=== PATIENT | male | born 2000 | race Caucasian/White ===

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

== ENCOUNTER 2018-07-17 07:12 | Emergency (ER) | payer BC ==
[~2018-07-17] VITALS: Ht 180.3 cm; Wt 95.3 kg
[~2018-07-17 07:12] MED LIST: FEXO-14 PO
--- OUTSIDE RECORDS SUMMARY | 2018-07-17 07:17 | XMS REPORT | Continuity of Care Document ---
Author Organization Unknown Address Unknown Allergies There is no data. Medications There [...] 04/28/2013 SHAINA QUINTERO MD 314.00 ADD 04/28/2013 NIDHI TA, DANIS Montano 314.00 ADD 04/28/2013 SHAINA QUINTERO MD 314.00 ADD 04/28/2013 SHAINA QUINTERO MD 314.00 ADD Procedures There is no data. Results There is no data. Encounters ACCT No. Visit Date/Time Discharge Status Pt. Type Provider Facility Loc./Unit Complaint [id number] 07/15/2018 17:50:00 ACT Outpatient EDWARD MENDEZ LAC [facility] [id number] 03/19/2014 14:43:00 03/19/2014 23:59:59 CLS Outpatient SHAINA QUINTERO MD [id number] 02/02/2014 15:16:00 02/02/2014 23:59:59 CLS Outpatient SHAINA QUINTERO MD [id number] 01/22/2014 15:58:00 01/22/2014 23:59:59 CLS Outpatient DANIS TERRELL MD [id number] 12/15/2013 16:31:00 12/15/2013 23:59:59 CLS Outpatient SHAINA QUINTERO MD [id number] 06/06/2013 15:32:00 06/06/2013 23:59:59 CLS Outpatient SHAINA QUINTERO MD [id number] 04/28/2013 15:29:00 04/28/2013 23:59:59 CLS Outpatient SHAINA QUINTERO MD [id number] 04/10/2013 15:20:00 04/10/2013 23:59:59 CLS Outpatient CHARLES MATHIS DO [id number] 12/12/2012 15:30:00 12/12/2012 23:59:59 CLS Outpatient CHARLES MATHIS DO
--- OUTSIDE RECORDS SUMMARY | 2018-07-17 07:17 | XMS REPORT ---
Author Author Migration, Doctor Organization [facility] Address Unknown Phone Unavailable Care Team Providers Care Ios Architect Name Role Phone Migration, Doctor Unavailable Unavailable PROBLEMS Type Condition ICD9-CM Code PEE66-OH Code Onset Dates Condition Status SNOMED Code Problem Attention deficit disorder of childhood with hyperactivity 314.01 Active 558492666 Problem Attention deficit disorder of childhood without mention of hyperactivity 314.00 Active 23146694 Problem Need for prophylactic vaccination and inoculation, Influenza V04.81 Active 914509868 ALLERGIES No Information ENCOUNTERS Encounter Location Date Diagnosis [facility] [address] [place] [address] Aug, [facility] [address] [place] [phone] July, [facility] [address] [place] [id number] [place] [phone] Jul, [facility] [address] [place] [id number] [place] [address] Jul, [facility] [address] [place] [phone] May, [facility] [address] [place] [id number] [place] [phone] May, [facility] [address] [place] [id number] [place] [address] May, [facility] [address] [place] [phone] May, [facility] [address] [place] [address] Apr, [facility] [address] [place] [id number] [place] [address] Apr, [facility] [address] [place] [address] Mar, [facility] [address] [place] [id number], [place] [address] Mar, [facility] [address] [place] [address] Mar, [facility] [address] [address] Mar, [facility] [address] [place] [address] Jan, [facility] [id number] [place] [address] Jan, [facility] [address] [place] [address] Dec, [facility] [id number] [place] [address] Dec, [facility] [address] [place] [address] Dec, [facility] [id number] [place] [address] Dec, [facility] [address] [place] [address] Dec, [facility] [id number] [place] [address] Dec, [facility] [address] [place] [address] Dec, [facility] [address] [address] Dec, [facility] [address] [place] [address] Oct, [facility] [id number] [place] [address] Oct, [facility] [address] [place] [address] Sep, [facility] [address] [address] Sep, [facility] [address] [place] [facility] [place] [address] Aug, [facility] [address] [facility] [id number] [address] Aug, [facility] [address] [place] [address] Jul, [facility] [id number] [address] Jul, [facility] [address] [place] [address] May, [facility] [id number] [address] May, [facility] [address] [place] [address] May, [facility] [id number] [address] May, [facility] [address] [place] [address] May, [facility] [id number] [address] May, [facility] [address] [place] [address] Apr, [facility] [address] [place] [address] Apr, [facility] [id number] [address] Apr, [facility] [id number] [address] Apr, [facility] [address] [place] [address] Apr, [facility] [id number] [address] Apr, [facility] [address] [place] [address] Apr, [facility] [address] [facility] [id number] [place] [address] Apr, [facility] [address] [place] [address] Mar, [facility] [id number] [address] Mar, [facility] [address] [place] [address] Dec, [facility] [id number] [id number] Dec, [facility] [place] [address] Dec, IMMUNIZATIONS No Known Immunizations SOCIAL HISTORY Never Assessed REASON FOR VISIT [facility] [place] [place] PLAN OF CARE VITAL SIGNS MEDICATIONS Medication Instructions Dosage Frequency Start Date End Date Duration Status Adderall XR 15 mg 1 Capsule by Oral route 1 time per day at noon May Active RESULTS No Results PROCEDURES No Known procedures INSTRUCTIONS MEDICATIONS ADMINISTERED No Known Medications
--- NOTE | 2018-07-17 07:27 | ED General ---
General Chief Complaint: Dizzy, nasal drainage Stated Complaint: DIZZY Source of Information: Patient, Family Exam Limitations: No Limitations History of Present Illness Date Seen by Provider: Jul 17, 2018 Time Seen by Provider: 07:27 Timing/Duration: Other (2 weeks) Severity: Mild 17 y/o M with history of allergies presents with 2 week history of nasal drainage and subsequent congestion, intermittent frontal headaches without fever or chills. He has had intermittent dizziness that is worse with position change and turning his head, improved when still. No neck stiffness. Denies palpitations, SOB, chest pain, passing out. Allergies and Home Medications Allergies Coded Allergies: No Known Drug Allergies (Unverified , 11/29/17) Home Medications Amoxicillin 500 Mg Capsule, 500 MG PO TID Prescribed by: GT WILSON on 07/17/18 0749 Flunisolide 25 Ml Inha, 25 ML NS BID Prescribed by: GT WILSON on 07/17/18 0749 Meclizine HCl 25 Mg Tablet, 25 MG PO Q8H PRN for DIZZINESS Prescribed by: GT WILSON on 07/17/18 0749 Patient Home Medication List Home Medication List Reviewed: Yes Review of Systems Review of Systems Constitutional: No chills; dizziness; No fever, No weakness EENTM: see HPI Respiratory: No cough, No short of breath Cardiovascular: No chest pain, No edema, No palpitations Gastrointestinal: No abdominal pain, No nausea, No vomiting Genitourinary: No dysuria, No frequency, No hematuria Musculoskeletal: No muscle pain, No muscle stiffness, No neck pain Skin: No lesions, No rash Psychiatric/Neurological: Anxiety, Headache; Denies Numbness Past Abzihkf-Xghwku-Pvaveb Hx Past Med/Social Hx: Reviewed Nursing Past Med/Soc Hx Patient Social History 2nd Hand Smoke Exposure: No Recent Hopitalizations: No Immunizations Up To Date Tetanus Booster (TDap): Less than 5yrs PED Vaccines UTD: Yes Seasonal Allergies Seasonal Allergies: No Past Medical History Surgeries: Yes (skin lesion) Respiratory: No Cardiac: No Neurological: No Genitourinary: No Gastrointestinal: No Musculoskeletal: No Endocrine: No HEENT: No Cancer: No Psychosocial: No Integumentary: No Blood Disorders: No Physical Exam Vital Signs Vital Signs - First Documented 07/17/18 07/17/18 07:20 07:54 Temp 96.7 Pulse 99 Resp 16 B/P (MAP) 133/79 Pulse Ox 99 O2 Delivery Room Air Capillary Refill : Height, Weight, BMI Height: 5'11.00" Weight: 215lbs. oz. 97.481210ag; 28.12 BMI Method:Stated General Appearance: No Apparent Distress, WD/WN HEENT: PERRL/EOMI, TMs Normal, Pharynx Normal, Other (+ point tenderness/ fullness over benitez maxillary sinuses, + green nasal discharge) Neck: Full Range of Motion, Normal Inspection, Non Tender, Supple Respiratory: Chest Non Tender, Lungs Clear, Normal Breath Sounds, No Accessory Muscle Use, No Respiratory Distress Cardiovascular: Regular Rate, Rhythm, No Edema, No Gallop, No JVD, No Murmur, Normal Peripheral Pulses Extremity: Normal Capillary Refill, Normal Inspection, Normal Range of Motion, Non Tender, No Calf Tenderness, No Pedal Edema Neurologic/Psychiatric: Alert, Oriented x3, No Motor/Sensory Deficits, Normal Mood/Affect, stationary fireman II-XII Norm as Tested Skin: Normal Color, Warm/Dry Progress/Results/Core Measures Suspected Sepsis SIRS Temperature: Pulse: Respiratory Rate: Blood Pressure / Mean: Results/Orders Vital Signs/I&O 07/17/18 07/17/18 07:20 07:54 Temp 96.7 96.7 Pulse 99 99 Resp 16 16 B/P (MAP) 133/79 Pulse Ox 99 O2 Delivery Room Air Room Air Capillary Refill : Departure Impression Primary Impression: Benign positional vertigo Additional Impression: Sinusitis Disposition: 01 HOME, SELF-CARE Condition: Stable Departure-Patient Inst. Decision time for Depature: 07:44 Referrals: NO,LOCAL PHYSICIAN (PCP/Family) Primary Care Physician Patient Instructions: Vertigo (a Type of Dizziness) (DC), Sinusitis, Adult (DC) Scripts Meclizine HCl (Meclizine HCl) 25 Mg Tablet 25 MG PO Q8H PRN for DIZZINESS for 10 Days, #30 TAB 0 Refills Prov: GT WILSON MD 07/17/18 Flunisolide (Flunisolide) 25 Ml Inha 25 ML NS BID for 14 Days, #1 INHALER 0 Refills Prov: GT WILSON MD 07/17/18 Amoxicillin (Amoxicillin) 500 Mg Capsule 500 MG PO TID for 7 Days, #21 CAP 0 Refills Prov: GT WILSON MD 07/17/18 GT WILSON MD Jul 17, 2018 07:27
[2018-07-17] MEDS ORDERED: AMOX500C2 PO (07:49)
[2018-07-17] MEDS ORDERED: MECL-106 PO (07:49)
[2018-07-17] MEDS ORDERED: FL025NA25 NS (07:49)
== END 2018-07-17 07:54 | disposition home or self-care (01) ==
LOC: EDUNIT# 07:12 → ER FS 07:14
DX: H81.10 Benign paroxysmal vertigo, unspecified ear (principal); J32.9 Chronic sinusitis, unspecified
CPT/HCPCS: 99283

== ENCOUNTER 2018-08-07 22:52 | Emergency (ER) | payer BC ==
[~2018-08-07] VITALS: Ht 177.8 cm; Wt 100.7 kg
[~2018-08-07 22:52] MED LIST changes: +AMOX500C2 PO; +FL025NA25 NS; +MECL-106 PO
--- OUTSIDE RECORDS SUMMARY | 2018-08-07 23:06 | XMS REPORT | Continuity of Care Document ---
[...] DANIS TERRELL MD 314.01 ADHD COMBINED 12/12/2012 HSAINA QUINTERO MD 314.01 ADHD COMBINED 12/12/2012 SHAINA [...] SHAINA QUINTERO MD 314.00 ADD 04/28/2013 NIDHI AT, DANIS Montano 314.00 ADD 04/28/2013 SHAINA QUINTERO MD 314.00 ADD 04/28/2013 SHAINA QUINTERO MD 314.00 ADD Procedures There is no data. Results There is no data. Encounters ACCT No. Visit Date/Time Discharge Status Pt. Type Provider Facility Loc./Unit Complaint [id number] 07/15/2018 17:50:00 07/15/2018 23:59:59 CLS Outpatient EDWARD MENDEZ LAC [facility] [id number] 03/19/2014 14:43:00 03/19/2014 23:59:59 CLS Outpatient SHAINA QUINTERO MD [id number] 02/02/2014 15:16:00 02/02/2014 23:59:59 CLS Outpatient SHAINA QUINTERO MD [id number] 01/22/2014 15:58:00 01/22/2014 23:59:59 CLS Outpatient DANIS TERRELL MD [id number] 12/15/2013 16:31:00 12/15/2013 23:59:59 CLS Outpatient SHAINA QUINTERO MD [id number] 06/06/2013 15:32:00 06/06/2013 23:59:59 CLS Outpatient SHAINA QUINTERO MD [id number] 04/28/2013 15:29:00 04/28/2013 23:59:59 CLS Outpatient SHAINA QUINTERO MD [id number] 04/10/2013 15:20:00 04/10/2013 23:59:59 CLS Outpatient CHARLES MATHIS DO [id number] 12/12/2012 15:30:00 12/12/2012 23:59:59 CLS Outpatient CHARLES MATHIS DO
[2018-08-08 00:33] LABS: HEMOGLOBIN 17.1 G/DL (13.3-17.7); MEAN CORPUSCULAR HEMOGLOBIN 30 PG (25-34); WHITE BLOOD COUNT 12.3 10^3/uL (4.3-11.0)
[2018-08-08 00:34] LABS: BASOPHILS # (AUTO) 0.1 10^3/uL (0.0-0.1); BASOPHILS % (AUTO) 1 % (0-10); EOSINOPHILS # (AUTO) 0.1 10^3/uL (0.0-0.3); EOSINOPHILS % (AUTO) 1 % (0-10); HEMATOCRIT 49 % (40-54); LYMPHOCYTES # (AUTO) 3.8 X 10^3 (1.0-4.0); LYMPHOCYTES % (AUTO) 31 % (12-44); MEAN CORPUSCULAR HGB CONC 35 G/DL (32-36); MEAN CORPUSCULAR VOLUME 84 FL (80-99); MEAN PLATELET VOLUME 9.2 FL (7.4-10.4); MONOCYTES # (AUTO) 0.7 X 10^3 (0.0-1.0); MONOCYTES % (AUTO) 6 % (0-12); NEUTROPHILS # (AUTO) 7.5 X 10^3 (1.8-7.8); NEUTROPHILS % (AUTO) 61 % (42-75); PLATELET COUNT 357 10^3/uL (130-400); RED CELL DISTRIBUTION WIDTH 11.8 % (10.0-14.5)
[2018-08-08 00:35] LABS: BACTERIA,URINE NEGATIVE /HPF; BILIRUBIN,URINE NEGATIVE (NEGATIVE); CLARITY,URINE CLEAR; COLOR,URINE YELLOW; GLUCOSE, URINE (UA) NEGATIVE (NEGATIVE); KETONES,URINE NEGATIVE (NEGATIVE); LEUKOCYTE ESTERASE ,URINE NEGATIVE (NEGATIVE); NITRITE,URINE NEGATIVE (NEGATIVE); PROTEIN,URINE NEGATIVE (NEGATIVE); UROBILINOGEN,URINE 0.2 MG/DL (NORMAL)
[2018-08-08 00:36] LABS: SQUAMOUS EPITHELIAL CELL,UR RARE /HPF
[2018-08-08 00:38] LABS: AMPHETAMINE SCREEN, URINE NEGATIVE (NEGATIVE); BARBITURATE SCREEN URINE NEGATIVE (NEGATIVE); BENZODIAZEPINES SCREEN URINE NEGATIVE (NEGATIVE); CANNABINOID SCREEN, URINE NEGATIVE (NEGATIVE); COCAINE SCREEN URINE NEGATIVE (NEGATIVE); METHADONE STAT NEGATIVE (NEGATIVE); METHAMPHETAMINE SCREEN URINE S NEGATIVE (NEGATIVE); OPIATE SCREEN URINE NEGATIVE (NEGATIVE); OXYCODONE STAT NEGATIVE (NEGATIVE); PROPOXYPHENE STAT NEGATIVE (NEGATIVE); TRICYCLIC ANTIDEPRESSANTS SCRE NEGATIVE (NEGATIVE)
[2018-08-08 00:39] LABS: BUN/CREATININE RATIO 14; CARBON DIOXIDE 23 MMOL/L (21-32); CHLORIDE 101 MMOL/L (98-107); CREATININE SERUM 0.87 MG/DL (0.60-1.30); GFR ESTIMATED > 60; SODIUM 141 MMOL/L (135-145)
[2018-08-08 00:40] LABS: ACETAMINOPHEN < 10 UG/ML (10-30); ALANINE AMINOTRANSFERASE 43 U/L (0-55); ALBUMIN 4.8 GM/DL (3.2-4.5); ALKALINE PHOSPHATASE 54 U/L (40-136); BILIRUBIN,TOTAL 0.3 MG/DL (0.1-1.0); CALCIUM 9.7 MG/DL (8.5-10.1); GLUCOSE 105 MG/DL (70-105); SALICYLATE 2.6 MG/DL (5.0-20.0); TOTAL PROTEIN 7.7 GM/DL (6.4-8.2)
--- NOTE | 2018-08-08 01:22 | ED Psychosocial ---
General Chief Complaint: General Problems/Pain Stated Complaint: MENTAL HEALTH EVAL;VERTIGO Nursing Triage Note: patient is having pain in his head and verbalizes frustration when it is unrelieved and also causes increased anxiety. Source: patient, family (Mother and Cousin) History of Present Illness Date Seen by Provider: August 08, 2018 Time Seen by Provider: 01:22 Initial Comments 17-year-old male presenting with complaints of headache as well as anxiety and agitation. He has multiple concerns brought up by family. He has been having issues with anxiety and they feel like he has a mental health condition. They' re concerned that he has schizophrenic or bipolar. They feel like he is having conversations with people that aren't there. The family is concerned that he is very anxious and possibly manic at times. The are concerned that he may need medication for at least anxiety. They're also concerned about his headache and that the medications and treatments that he's been getting have not been helping. He was to start a migraine headache medication but has not picked it up yet. His headache and neck pain symptoms were worse overnight so they came to the emergency department to be checked out. Family was concerned that he might need to be started on medication for anxiety or mental condition. But since he has not seen a psychiatrist for actual medication prescription they weren't sure how to get that for him. He needs to follow-up through [facility] but has not been back for his medication appointment. Allergies and Home Medications Allergies Coded Allergies: No Known Drug Allergies (Unverified , 11/29/17) Home Medications Amoxicillin 500 Mg Capsule, 500 MG PO TID Prescribed by: GT WILSON on 07/17/18 0749 Flunisolide 25 Ml Inha, 25 ML NS BID Prescribed by: GT WILSON on 07/17/18 0749 Meclizine HCl 25 Mg Tablet, 25 MG PO Q8H PRN for DIZZINESS Prescribed by: GT WILSON on 07/17/18 0749 Patient Home Medication List Home Medication List Reviewed: Yes Review of Systems Constitutional: No chills; dizziness (intermittent); No fever, No weakness, No weight gain, No weight loss EENTM: No ear discharge, No hearing loss, No blurred vision, No double vision, No vision loss, No epistaxis, No nose congestion Respiratory: No cough, No short of breath Cardiovascular: No chest pain Gastrointestinal: No abdominal pain, No nausea, No vomiting Genitourinary: no symptoms reported Musculoskeletal: neck pain Skin: no symptoms reported Psychiatric/Neurological: Anxiety, Headache; Denies Numbness, Denies Paresthesia, Denies Seizure Past Ulifrje-Iwysee-Takbjj Hx Past Med/Social Hx: Reviewed Nursing Past Med/Soc Hx Patient Social History Alcohol Use: Denies Use Recreational Drug Use: Yes Drug of Choice: marijuana Smoking Status: Never a Smoker Type Used: Smokeless Tobacco 2nd Hand Smoke Exposure: No (chews tobacco) Recent Foreign Travel: No Contact w/Someone Who Travel: No Recent Infectious Disease Expo: No Recent Hopitalizations: No Physical Abuse: No Sexual Abuse: No Mistreated: No Fear: No Immunizations Up To Date Tetanus Booster (TDap): Less than 5yrs PED Vaccines UTD: Yes Seasonal Allergies Seasonal Allergies: No Past Medical History Respiratory: No Cardiac: No Neurological: No Genitourinary: No Gastrointestinal: No Musculoskeletal: No Endocrine: No HEENT: No Cancer: No Psychosocial: Yes (impulsive, anger control.) Anxiety, Personality Disorder, Violent Behavior, Depression Integumentary: No Blood Disorders: No Adverse Reaction/Blood Tranf: No Physical Exam Vital Signs - First Documented 08/07/18 08/08/18 23:03 03:55 Temp 99.3 Pulse 100 Resp 14 B/P (MAP) 138/94 Pulse Ox 96 Capillary Refill : Height, Weight, BMI Height: 5'10.00" Weight: 222lbs. oz. 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, no motor/sensory deficits, alert, oriented x 3, other (flat affect) Appearance/Memory: neat Behavior/Eye Contact: cooperative, good eye contact, normal speech Thoughts/Hallucinations: no apparent hallucination Skin: normal color, warm/dry Progress/Results/Core Measures Results/Orders Lab Results Laboratory Tests Test 08/08/18 00:00 Range/Units White Blood Count 12.3 H 4.3-11.0 10^3/uL Red Blood Count 5.75 4.35-5.85 10^6/uL Hemoglobin 17.1 13.3-17.7 G/DL Hematocrit 49 40-54 % Mean Corpuscular Volume 84 80-99 FL Mean Corpuscular Hemoglobin 30 25-34 PG Mean Corpuscular Hemoglobin Concent 35 32-36 G/DL Red Cell Distribution Width 11.8 10.0-14.5 % Platelet Count 357 130-400 10^3/uL Mean Platelet Volume 9.2 7.4-10.4 FL Neutrophils (%) (Auto) 61 42-75 % Lymphocytes (%) (Auto) 31 12-44 % Monocytes (%) (Auto) 6 0-12 % Eosinophils (%) (Auto) 1 0-10 % Basophils (%) (Auto) 1 0-10 % Neutrophils # (Auto) 7.5 1.8-7.8 X 10^3 Lymphocytes # (Auto) 3.8 1.0-4.0 X 10^3 Monocytes # (Auto) 0.7 0.0-1.0 X 10^3 Eosinophils # (Auto) 0.1 0.0-0.3 10^3/uL Basophils # (Auto) 0.1 0.0-0.1 10^3/uL Urine Color YELLOW Urine Clarity CLEAR Urine pH 7.0 5-9 Urine Specific [place] 1.010 L 1.016-1.022 Urine Protein NEGATIVE NEGATIVE Urine Glucose (UA) NEGATIVE NEGATIVE Urine Ketones NEGATIVE NEGATIVE Urine Nitrite NEGATIVE NEGATIVE Urine Bilirubin NEGATIVE NEGATIVE Urine Urobilinogen 0.2 NORMAL MG/DL Urine Leukocyte Esterase NEGATIVE NEGATIVE Urine RBC (Auto) NEGATIVE NEGATIVE Urine RBC NONE /HPF Urine WBC NONE /HPF Urine Squamous Epithelial Cells RARE /HPF Urine Crystals NONE /LPF Urine Bacteria NEGATIVE /HPF Urine Casts NONE /LPF Urine Mucus NEGATIVE /LPF Urine Culture Indicated NO Sodium Level 141 135-145 MMOL/L Potassium Level 4.0 3.6-5.0 MMOL/L Chloride Level 101 98-107 MMOL/L Carbon Dioxide Level 23 21-32 MMOL/L Anion Gap 17 H 5-14 MMOL/L Blood Urea Nitrogen 12 7-18 MG/DL Creatinine 0.87 0.60-1.30 MG/DL Estimat Glomerular Filtration Rate > 60 BUN/Creatinine Ratio 14 Glucose Level 105 70-105 MG/DL Calcium Level 9.7 8.5-10.1 MG/DL Corrected Calcium 8.5-10.1 MG/DL Total Bilirubin 0.3 0.1-1.0 MG/DL Aspartate Amino Transf (AST/SGOT) 26 5-34 U/L Alanine Aminotransferase (ALT/SGPT) 43 0-55 U/L Alkaline Phosphatase 54 40-136 U/L Total Protein 7.7 6.4-8.2 GM/DL Albumin 4.8 H 3.2-4.5 GM/DL Salicylates Level 2.6 L 5.0-20.0 MG/DL Urine Opiates Screen NEGATIVE NEGATIVE Urine Oxycodone Screen NEGATIVE NEGATIVE Urine Methadone Screen NEGATIVE NEGATIVE Urine Propoxyphene Screen NEGATIVE NEGATIVE Acetaminophen Level < 10 L 10-30 UG/ML Urine Barbiturates Screen NEGATIVE NEGATIVE Ur Tricyclic Antidepressants Screen NEGATIVE NEGATIVE Urine Phencyclidine Screen NEGATIVE NEGATIVE Urine Amphetamines Screen NEGATIVE NEGATIVE Urine Methamphetamines Screen NEGATIVE NEGATIVE Urine Benzodiazepines Screen NEGATIVE NEGATIVE Urine Cocaine Screen NEGATIVE NEGATIVE Urine Cannabinoids Screen NEGATIVE NEGATIVE Serum Alcohol < 10 <10 MG/DL My Orders Orders - HAYLIE BLANCO MD Ua Culture If Indicated (08/07/18 23:43) Cbc With Automated Diff (08/07/18 23:43) Comprehensive Metabolic Panel (08/07/18 23:43) Alcohol (08/07/18 23:43) Drug Screen Stat (Urine) (08/07/18 23:43) Acetaminophen (08/07/18 23:43) Salicylate (08/07/18 23:43) Ekg Tracing (08/07/18 23:43) Bh Status Checks/Observation Q15M (08/07/18 23:43) Bh Status Checks/Observation Q15M (08/07/18 23:41) Lorazepam Injection (Ativan Injection) (08/08/18 01:49) Ct Head/Cervical Spine Wo (08/08/18 02:17) Vital Signs/I&O 08/07/18 08/08/18 23:03 03:55 Temp 99.3 98.6 Pulse 100 98 Resp 14 18 B/P (MAP) 138/94 Pulse Ox 96 Progress Progress Note #1: Progress Note basic medical screening labs and ECG obtained on the patient based on his initial complaint. These were all normal. He had no acute abnormalities in terms of his labs. He had no drugs of abuse showing up and his lab work. These results were reviewed with the patient and family. A CT scan of his head and cervical spine were added on since he's had no imaging to evaluate these areas of pain. A 2 mg IM dose of Ativan was ordered to try and help with his anxiety and pain. Progress Note #2: Progress Note CT head and cervical spine came back showing no acute significant abnormalities. Reviewed results with patient and family. He was more calm and seemed to be doing better after the Ativan. Encouraged to follow up with [facility] for further care. Encouraged to get in with mental health. Advised to make sure he goes for the medical evaluation and follow-up on the med visit as well. Initial ECG Impression Date: August 08, 2018 Initial ECG Impression Time: 00:01 Initial ECG Rate: 99 Initial ECG Rhythm: Normal Sinus Initial ECG Intervals: Normal Initial ECG Impression: Normal Initial ECG Comparisson: No Previous ECG Available Comment Normal sinus rhythm with a heart rate 99 bpm. NC interval 163 ms. QT interval 312 ms and a QT corrected interval 401 ms. There is no ST elevation. No prior tracing for comparison. He has some early repolarization changes. Diagnostic Imaging Diagonstic Imaging: CT Plain Films/CT/US/NM/MRI: c-spine, head Comments Normal head and brain on the CT. No acute findings on cervical spine. Study was read at 2:35 AM and initial results transmitted at 2:44 AM. Read by radiologist Dr. Bonilla Ward MD. Reviewed: Reviewed Night [facility] Study Departure Impression Primary Impression: Anxiety about health Additional Impressions: Generalized headache Cervical pain (neck) Disposition: 01 HOME, SELF-CARE Condition: Stable Departure-Patient Inst. Decision time for Depature: 03:30 Referrals: NO,LOCAL PHYSICIAN (PCP/Family) Primary Care Physician Patient Instructions: Anxiety, Adult (DC), Generalized Neck Pain (DC), Headache , Adult (DC) Add. Discharge Instructions: Follow up with [facility] about mental health and medical care for your anxiety and headaches. All discharge instructions reviewed with patient and/or family. Voiced understanding. HAYLIE BLANCO MD August 08, 2018 01:22
[2018-08-08] MEDS ORDERED: LORazepam INJ 2 MG/ML (ATIVAN) VIAL IM STA (01:49)
--- NOTE | 2018-08-08 06:45 | Diagnostic Imaging Report ---
PROCEDURE: CT head and CT cervical spine without contrast. TECHNIQUE: Multiple contiguous axial images were obtained through the brain and cervical spine without the use of intravenous contrast. Sagittal and coronal reformations through the cervical spine were then performed. Auto Exposure Controls were utilized during the CT exam to meet ALARA standards for radiation dose reduction. INDICATION: Head and neck pain x1 month. COMPARISON: None FINDINGS: CT head: Ventricles and cortical sulci are normal in size and contour. There is no midline shift or mass-effect. No acute intra-axial hemorrhage is seen. There are no abnormal areas of increased or decreased density to suggest acute hemorrhage or edema. No extra-axial masses or collections are present. The bony calvarium is intact. The visualized paranasal sinuses are unremarkable. The mastoid air cells are clear. CT cervical spine: Evaluation of static alignment demonstrates straightening of normal lordotic curvature of cervical spine. There is no significant anterolisthesis or retrolisthesis. There is no evidence of jumped facets. Vertebral body heights are maintained. There is no evidence of acute fracture. No bony fragments are seen within the spinal canal. There are no significant degenerative changes. Pre-and paravertebral soft tissue structures are unremarkable. IMPRESSION: 1. No acute intracranial abnormality. No CT evidence of mass, acute infarct or intracranial hemorrhage. 2. No acute fracture or dislocation of cervical spine. Dictated by: Dictated on workstation # [id number]
== END 2018-08-08 03:35 | disposition home or self-care (01) ==
LOC: EDUNIT# 22:52 → ER FS 22:53
DX: F41.9 Anxiety disorder, unspecified (principal); R51 Headache; M54.2 Cervicalgia; F20.9 Schizophrenia, unspecified; F60.9 Personality disorder, unspecified; F31.9 Bipolar disorder, unspecified; F12.10 Cannabis abuse, uncomplicated; F17.220 Nicotine dependence, chewing tobacco, uncomplicated
CPT/HCPCS: 36415; 70450; 72125; 80053; 80306; 80320; 80329; 81000; 85025; 93005; 96372

== ENCOUNTER 2018-08-16 01:04 | Emergency (ER) | payer BC ==
--- OUTSIDE RECORDS SUMMARY | 2018-08-16 01:10 | XMS REPORT | Continuity of Care Document ---
Author Organization Unknown Address Unknown Allergies There is no data. Medications There is no data. Problems Date Dx Coded Attending Type Code Diagnosis Diagnosed By 12/12/2012 CHARLES MATHIS DO 314.01 ADHD COMBINED 12/12/2012 CHARLES MATHIS DO 314.01 ADHD COMBINED 12/12/2012 SHAINA QUINTERO MD 314.01 ADHD COMBINED 12/12/2012 SHAINA QUNITERO MD 314.01 ADHD COMBINED 12/12/2012 SHAINA QUINTERO [...] Status Pt. Type Provider Facility Loc./Unit Complaint [id number] 08/07/2018 17:20:00 08/07/2018 23:59:59 CLS [facility] [id number] 03/19/2014 14:43:00 03/19/2014 23:59:59 CLS Outpatient SHAINA QUINTERO MD [id number] 02/02/2014 15:16:00 02/02/2014 23:59:59 CLS Outpatient SHAINA QUINTERO MD [id number] 01/22/2014 15:58:00 01/22/2014 23:59:59 CLS Outpatient DANIS TERRELL MD [id number] 12/15/2013 16:31:00 12/15/2013 23:59:59 CLS Outpatient SHAINA QUINTERO MD [id number] 06/06/2013 15:32:00 06/06/2013 23:59:59 CLS Outpatient SHAINA QUINTERO MD [id number] 04/28/2013 15:29:00 04/28/2013 23:59:59 CLS Outpatient SHAINA QUINTERO MD [id number] 04/10/2013 15:20:00 04/10/2013 23:59:59 CLS Outpatient CHARLES MATHIS DO [id number] 12/12/2012 15:30:00 12/12/2012 23:59:59 CLS Outpatient CHARLES MATHIS DO
--- NOTE | 2018-08-16 01:15 | NUR ---
Patient left without being seen or telling anyone he was leaving. Tracker board shows patient was waiting 10 minutes when this RN went to get patient from the waiting room.
== END 2018-08-16 01:20 | disposition left against medical advice (07) ==
LOC: EDUNIT# 01:04 → ER FS 01:06
DX: F41.0 Panic disorder [episodic paroxysmal anxiety] (principal)

== ENCOUNTER 2018-08-21 04:22 | Emergency (ER) | payer BC ==
[~2018-08-21] VITALS: Ht 180.3 cm; Wt 104.3 kg
--- OUTSIDE RECORDS SUMMARY | 2018-08-21 04:28 | XMS REPORT | Continuity of Care Document ---
[...] Status Pt. Type Provider Facility Loc./Unit Complaint [id number] 08/19/2018 10:20:00 ACT Outpatient EDWARD MENDEZ [facility] [id number] 03/19/2014 14:43:00 03/19/2014 23:59:59 CLS Outpatient SHAINA QUINTERO MD [id number] 02/02/2014 15:16:00 02/02/2014 23:59:59 CLS Outpatient SHAINA QUINTERO MD [id number] 01/22/2014 15:58:00 01/22/2014 23:59:59 CLS Outpatient DANIS TERRELL MD [id number] 12/15/2013 16:31:00 12/15/2013 23:59:59 CLS Outpatient SHAINA QUINTERO MD [id number] 06/06/2013 15:32:00 06/06/2013 23:59:59 CLS Outpatient SHAINA QUINTERO MD [id number] 04/28/2013 15:29:00 04/28/2013 23:59:59 CLS Outpatient SHAINA QUINTERO MD [id number] 04/10/2013 15:20:00 04/10/2013 23:59:59 CLS Outpatient CHARLES MATHIS DO [id number] 12/12/2012 15:30:00 12/12/2012 23:59:59 CLS Outpatient CHARLES MATHIS DO
--- OUTSIDE RECORDS SUMMARY | 2018-08-21 04:28 | XMS REPORT ---
Author Author Migration, Doctor Organization [facility] Address Unknown Phone Unavailable Care Team Providers Care Pharmacist In Charge Name Role Phone Migration, Doctor Unavailable Unavailable PROBLEMS Type Condition ICD9-CM Code UUL60-RW Code Onset Dates Condition Status SNOMED Code Problem Seasonal allergic rhinitis, unspecified trigger J30.2 Active 993106998 Problem Migraine without status migrainosus, not intractable, unspecified migraine type G43.909 Active 43733218 Problem Need for prophylactic vaccination and inoculation, Influenza V04.81 Active 025450688 Problem Attention deficit disorder of childhood with hyperactivity 314.01 Active 219573312 Problem Attention deficit disorder of childhood without mention of hyperactivity 314.00 Active [id number] ALLERGIES No Information ENCOUNTERS Encounter Location Date Diagnosis [facility] [address] [address] July, [address] [address] July, Migraine without status migrainosus, not intractable, unspecified migraine type G43.[address] [address] July, Acute sinusitis, recurrence not specified, unspecified location J01.90 and Dysfunction of eustachian tube, unspecified laterality H69.80 [facility] [address] [place] [address] Jul, Seasonal allergic rhinitis, unspecified trigger J30.2 [facility] [address] [place] [address] Aug, [facility] [address] [place] [address] July, [facility] [address] [place] [address] Jul, [facility] [address] [place] [address] Jul, [facility] [address] [place] [address] May, [facility] [id number], [place] [address] May, [facility] [id number], [place] [address] May, [facility] [address] [place] [address] May, [facility] [address] [place] [address] Apr, [facility] [address] [place] [address] Apr, [facility] [address] [place] [address] Mar, [facility] [address] [place] [address] Mar, [facility] [address] [place] [address] Mar, [facility] [address] [place] [address] Mar, [facility] [address] [place] [address] Jan, [facility] [address] [place] [address] Jan, [facility] [address] [place] [address] Dec, [facility] [id number], [place] [address] Dec, [facility] [address] [place] [address] Dec, [facility] [id number], [place] [address] Dec, [facility] [address] [place] [address] Dec, [facility] [address] [place] [address] Dec, [facility] [address] [place] [address] Dec, [facility] [address] [place] [address] Dec, [facility] [address] [place] [address] Oct, [facility] [address] [place] [address] Oct, [facility] [address] [place] [address] Sep, [facility] [address] [place] [address] Sep, [facility] [address] [place] [address] Aug, [facility] [address], [place] [address] Aug, [facility] [address] [place] [address] Jul, [facility] [address] [place] [address] Jul, [facility] [address] [place] [address] May, [facility] [address], [place] [address] May, [facility] [address] [place] [address] May, [facility] [address], [place] [address] May, [facility] [address] [place] [address] May, [facility] [address] [place] [address] May, [facility] [address] [place] [address] Apr, [facility] [address] [place] [address] Apr, [facility] [address], [place] [address] Apr, [facility] [address] [place] [address] Apr, [facility] [address] [place] [address] Apr, [facility] [address] [place], [place] [address] [place] [address] Apr, [facility] [address] [place] [address] Apr, [facility] [address] [place] [address], [place] [address] Apr, [facility] [address] [place] [address] Mar, [facility] [address] [place] [address] [place] [address] Mar, [facility] [address] [place] [address] Dec, [facility] [address] [place] [address], [place] [address] Dec, [facility] [address] [place] [address] Dec, IMMUNIZATIONS No Known Immunizations SOCIAL HISTORY Never Assessed REASON FOR VISIT EMR-[facility] [place]AN OF CARE VITAL SIGNS MEDICATIONS Unknown Medications RESULTS No Results PROCEDURES No Known procedures INSTRUCTIONS MEDICATIONS ADMINISTERED No Known Medications MEDICAL (GENERAL) HISTORY Type Description Date Medical History seasonal allergies Surgical History hernia repair Surgical History cyst removal from right eye 2013 Hospitalization History No Hospitalization history information
--- NOTE | 2018-08-21 04:41 | NUR ---
pt noted to be very anxious and tremoring, states comes and goes, states some times he doesnt "think right".
[2018-08-21] MEDS ORDERED: traZODone 50 MG (DESYREL) TAB PO ONE (04:45)
[2018-08-21] MEDS ORDERED: KETOROLAC 60 MG/2 ML VIAL IM STA (04:45)
[2018-08-21] MEDS ORDERED: LORazepam 0.5 MG (ATIVAN) TABLET PO STA (04:50)
--- NOTE | 2018-08-21 04:50 | ED Psychosocial ---
General Chief Complaint: Head/Cervical Problems Stated Complaint: NECK PAIN;CONFUSION Nursing Triage Note: pt co posterior neck pain, mother states pt has been very anxious recently and has been placed on new medications per mental health Source: patient, family Exam Limitations: no limitations History of Present Illness Date Seen by Provider: August 21, 2018 Time Seen by Provider: 04:26 Initial Comments Here with report of being very anxious and also complains of neck tension and pain. Patient is obviously anxious and feeling a bit overwhelmed. Patient's mother's as well. Recently started on Zoloft but only has had a couple doses. He's been seen here several times for anxiety but hadn't access the medical system and mental health system yet. He now has accessed both systems and has been prescribed Zoloft as well as hydroxyzine. He was also prescribed Seroquel but was quite drowsy with that and afterwards ate a significant amount of sweets so they stopped that medicine. He has not been on behavioral therapy program yet but that is something they are working towards. The mother and patient are both frustrated understandably. Timing/Duration: changing over time, other (worse over the last month) Severity: moderate Associated Symptoms: anxiety, impaired concentration Allergies and Home Medications Allergies Coded Allergies: prednisone (Verified Allergy, Unknown, 08/21/18) Home Medications Amoxicillin 500 Mg Capsule, 500 MG PO TID Prescribed by: GT WILSON on 07/17/18 0749 Flunisolide 25 Ml Inha, 25 ML NS BID Prescribed by: GT WILSON on 07/17/18 0749 Meclizine HCl 25 Mg Tablet, 25 MG PO Q8H PRN for DIZZINESS Prescribed by: GT WILSON on 07/17/18 0749 Patient Home Medication List Home Medication List Reviewed: Yes Review of Systems Constitutional: see HPI; No chills, No fever Respiratory: see HPI; No cough, No short of breath; other (hyperventilation) Cardiovascular: no symptoms reported Gastrointestinal: no symptoms reported Musculoskeletal: muscle stiffness, neck pain Psychiatric/Neurological: See HPI, Anxiety, Emotional Problems Past Dhcgnkr-Voukdu-Cansnp Hx Past Med/Social Hx: Reviewed Nursing Past Med/Soc Hx Patient Social History Alcohol Use: Denies Use Recreational Drug Use: No Drug of Choice: marijuana Smoking Status: Never a Smoker Type Used: Smokeless Tobacco 2nd Hand Smoke Exposure: No (chews tobacco) Recent Foreign Travel: No Contact w/Someone Who Travel: No Recent Infectious Disease Expo: No Recent Hopitalizations: No Ebola Symptoms: Denies Symptoms Listed Physical Abuse: No Sexual Abuse: No Mistreated: No Fear: No Immunizations Up To Date Tetanus Booster (TDap): Less than 5yrs PED Vaccines UTD: Yes Seasonal Allergies Seasonal Allergies: No Past Medical History Eye Surgery Respiratory: No Cardiac: No Neurological: No Genitourinary: No Gastrointestinal: No Musculoskeletal: No Endocrine: No HEENT: No Cancer: No Psychosocial: Yes (impulsive, anger control.) Anxiety, Personality Disorder, Violent Behavior, Depression Integumentary: No Blood Disorders: No Adverse Reaction/Blood Tranf: No Family Medical History Reviewed Nursing Family Hx Physical Exam Vital Signs - First Documented 08/21/18 04:33 Temp 98.8 Pulse 129 Resp 18 B/P (MAP) 150/101 O2 Delivery Room Air Capillary Refill : Height, Weight, BMI Height: 5'11.00" Weight: 230lbs. oz. 104.759195yw; 28.12 BMI Method:Stated General Appearance: WD/WN, mild distress Neck: full range of motion, supple, tender lateral; No tender midline Respiratory: lungs clear, normal breath sounds Cardiovascular: no murmur, tachycardia Gastrointestinal: non tender, soft Extremities: non-tender, normal inspection Neurologic/Psychiatric: alert, oriented x 3 Appearance/Memory: appropriate appearance, appropriate insight Behavior/Eye Contact: cooperative, avoids eye contact Thoughts/Hallucinations: normal thought pattern, no apparent hallucination Skin: normal color, warm/dry Progress/Results/Core Measures Results/Orders My Orders Orders - MARTIN TURNER MD Ketorolac Injection (Toradol Injection) (08/21/18 04:45) Lorazepam Tablet (Ativan Tablet) (08/21/18 04:50) Vital Signs/I&O 08/21/18 04:33 Temp 98.8 Pulse 129 Resp 18 B/P (MAP) 150/101 O2 Delivery Room Air Progress Progress Note : Progress Note Seen and evaluated. Did have a long conversation with the patient and his mother regarding mental health and mental health care as well as typical trajectory with initiating a new SSRI. They are frustrated that it takes time but are understanding. Concerning tonight, he is quite anxious and does have the neck tension laterally. We will go ahead and give Toradol 60 mg IM for that. Trazodone was considered and ordered but not available to use that to help with sleep this morning but will switch. He has used Ativan successfully in the past in the emergency department. I do not run to write a prescription for that but will use one time now. Ativan 1 mg by mouth ordered. They will follow-up with mental health again and discuss medications as well as behavioral therapy. Discharged home with return precautions. Mother and patient verbalize understanding instructions and agreement with plan. Departure Impression Primary Impression: Anxiety Disposition: HOME, SELF-CARE Condition: Stable Departure-Patient Inst. Decision time for Depature: 05:00 Referrals: NO,LOCAL PHYSICIAN (PCP/Family) Primary Care Physician Patient Instructions: Anxiety, Adult (DC) Add. Discharge Instructions: All discharge instructions reviewed with patient and/or family. Voiced understanding. Continue medications as prescribed. Follow-up with your doctor and mental health provider regarding her current condition and situation. You might benefit from [facility] and he should discuss this with your provider. Return for worse pain, fever, vomiting, weakness, breathing problems or other concerns as needed. MARTIN TURNER MD August 21, 2018 04:50
== END 2018-08-21 05:10 | disposition home or self-care (01) ==
LOC: EDUNIT# 04:22 → ER FS 04:23
DX: F41.9 Anxiety disorder, unspecified (principal); F32.9 Major depressive disorder, single episode, unspecified; F60.9 Personality disorder, unspecified; Z88.8 Allergy status to other drugs, medicaments and biological substances
CPT/HCPCS: 99284